=== PATIENT | male | born 1955 | race Caucasian/White ===

== ENCOUNTER 2016-07-20 12:33 | Observation (INO) | payer OTHER, MEDICARE ==
[~2016-07-20] VITALS: Ht 177.8 cm; Wt 124.8 kg
[~2016-07-20 12:33] MED LIST: ACETAMINOPHEN &1 TA1 PO; ASPIRIN 81MG TA81 MG PO; ATIVAN1 M1 PO; AUGMENTIN 500 M1 TAB PO; CILOSTAZOL100 MG PO; CYCLOBENZ5 MG PO; DULOXETINE 30MG30 MG PO; DULOXETINE60 MG PO; EFFIENT10 M2 PO; GABAPENTIN 600600 MG PO; GABAPENTIN TAB600 MG PO; HYDROCODONE BIT1 T39 PO; HYDROCODONE/ACE1 T11 PO; IBUPROFEN600 MG PO; LIPITOR40 MG PO; LISINOPRIL 5MG T5 MG PO; LORTAB 500 MG-11 TAB PO; NITROSTAT0.4 MG SL; OMEPRAZOLE40 MG PO; OXYCODONE AND A1 TA5 PO; PHENERGAN 25MG.25 M1 PO
[2016-07-20 12:34] VITALS: BP 153/106
[2016-07-20 12:52] LABS: HEMOGLOBIN 16.6 g/dL (14.1-18.0); LYMPH # 2.2 K/mm3 (0.7-4.5); LYMPH % 32.1 % (10-50)
--- NOTE | 2016-07-20 12:55 | Emergency Room Report ---
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 N Clinical Suspician of Infection? N Mental Status: 1 - Regular (Normal Baseline) Sepsis Risk:Possible Sepsis Risk Have you (or family members/close friends) recently traveled outside the [place]? N If Yes, where/when: Have you had exposure to infectious disease within the past month? TB? Other? Specify: Source patient, RN notes reviewed, family, RN/MD Exam Limitations no limitations Comment This is a 61-year-old gentleman presented to emergency room with chest pain, of sudden onset, around 10 AM, nonradiating, without any associated shows of breath, diaphoresis. Patient described his pain as pressure-like, 8/10, lasting 5-7 minutes. Patient underwent CABG in 1998, acquiring 2 more stents in [id number], and 3 more stents in January 2015 (Dr España). Patient advised that he has not been taking his medications in at least a year, as he has run out of them, nor did he follow up with cardiology or PCP in order to get refills. ALLERGIES Coded Allergies: enoxaparin (From LOVENOX) (Mild, FEVER 07/20/16) Home Medications Active Scripts OXYCODONE HCL/ACETAMINOPHEN (Oxycodone-Acetaminophen 10-325) 1 TAB PO QID PRN pain #56 TAB Prov: 02/28/16 Reported Medications Gabapentin (Gabapentin 600MG) 600 MG PO Q8 #90 TAB Omeprazole (Omeprazole 40MG) 40 MG PO DAILY #30 ASPIRIN (Aspirin) 81 MG PO DAILY Nitroglycerin (Nitrostat) 0.4 MG SL [id number] PRN CHEST PAIN History Medical History General CAD? Yes Angina: Yes [place]: Yes Hypertension? Yes Hyperlipidemia? Yes CHF? No DVT? No PE? No COPD? No Asthma? No Anemia? No GERD? Yes Gastric ulcers? No GI Bleed? No Hernia? Yes Thyroid Problems? No Hypothyroidism? No CVA? No Seizures? No Diabetes? No Renal Insuffiency? No End Stage Renal Disease? No UTI? No Stones? No BPH? No GB Disease: No Nephritic Syndrome? No Asplenia? No Hepatitis? No Sickle Cell Disease? No Arthritis? Yes Migraines? No Cataracts? No Glaucoma? No MRSA? No HIV? No TB? No Anxiety? No Depression? No Cancer? No More? Yes Additional hx: IRREGULAR HEART BEAT Immunization Hx Ped.Immunizations UTD Yes DT/Tetanus UNKNOWN Flu REFUSES Pneumonia REFUSES Surgical Hx Previous Surgery?Y 5-V CABG 2-HERNIA REPAIRS CYST REMOVED TAILBONE BILATERAL HIP REPLACEMENT STENT Family History Family Hx Diabetes No CAD Yes Hypertension Yes Hyperlipidemia Yes Cancer Yes TB No Social History Smoking Hx Smoker: Never Smoker Tobacco: No Type N/A Packs/day N/A Are you/the child exposed to second-hand smoke: No Alcohol Alcohol: No Review of Systems All Other Systems Reviewed and Negative Cardiovascular chest pain Physical Exam Vital Signs Vital Signs Date Time Temp Pulse Resp B/P Pulse O2 O2 Flow FiO2 Ox Delivery Rate 07/20 1642 98.0 81 20 133/76 95 ROOM AIR 07/20 1522 85 18 133/85 98 07/20 1349 80 12 159/81 99 07/20 1250 90 22 156/103 95 07/20 1234 98.1 91 22 153/106 96 General Appearance normal appearance, WD/WN, moderate distress Neck normal inspection, non-tender, supple, full range of motion Respiratory Status Yes: trachea midline, chest symmetrical, non tender chest. No: respiratory distress. Lung Sounds bilateral: normal breath sounds, lungs clear. 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 No Comment 12:45pm-case d/w Cuate Choi c/o Dr España 13:15pm-case discussed with Dr Calhoun Results/Orders Laboratory Tests 07/20/16 1500: Creatine Kinase 123, CK-MB (CK-2) Rel Index 1.1, CK and CKMB Interp 1.4, Troponin I < 0.02 07/20/16 1230: B-Natriuretic Peptide 17, D-Dimer 2700 *H 07/20/16 1230: Sodium 137, Potassium 3.9, Chloride 102, Carbon Dioxide 28, BUN 7, Creatinine 0.8, Estimated Creat Clear 163, Estimated GFR (MDRD) 98, Glucose 100, Calcium 8.9, Total Bilirubin 0.5, AST 28, ALT 48, Alkaline Phosphatase 96, Creatine Kinase 136, CK-MB (CK-2) Rel Index 1.3, CK and CKMB Interp 1.7, Troponin I < 0.02, Total Protein 8.2, Albumin 4.0, Globulin 4.2 H, Albumin/Globulin Ratio 1.0 L, PT 10.5, INR 0.98, APTT 27.3, WBC 7.0, RBC 5.39, Hgb 16.6, Hct 47.7, MCV 88.5, RDW 13.5, Plt Count 281, Gran % 62.4, Gran # 4.4, Lymphocytes % 32.1, Monocytes % 5.5, Lymphocytes # 2.2, Monocytes # 0.4, PUBS MCHC 34.8, MCH 30.8 Current Medication Orders Sig/Eddy Start time Last Medication Dose Route Stop Time Status Admin Fentanyl Citrate 25 MCG PRN PRN 07/21 1530 AC IV 07/21 2300 Fentanyl Citrate 50 MCG PRN PRN 07/21 1530 AC IV 07/21 2300 Flumazenil 0.2 MG PRN PRN 07/21 1530 AC IV 07/21 2300 Heparin Sodium (Beef 5,000 UNITS PRN PRN 07/21 1530 AC Lung) IV 07/22 1530 Heparin Sodium/ 3,000 UNITS PRN PRN 07/21 1530 AC Sodium Chloride IV 07/22 1530 Midazolam HCl 1 MG PRN PRN 07/21 1530 AC IV 07/21 2300 Midazolam HCl 1 MG PRN PRN 07/21 1530 AC IV 07/21 2300 Naloxone HCl 0.4 MG [id number] PRN 07/21 1530 AC IV 07/21 2300 Nitroglycerin 800 MCG PRN PRN 07/21 1530 AC IV 07/22 1530 Verapamil HCl 5 MG PRN PRN 07/21 1530 AC IV 07/22 1530 Aspirin 81 MG DAILY 07/21 0900 AC PO Prasugrel 10 MG DAILY 07/21 0900 AC PO Lidocaine HCl 20 ML ONCE ONE 07/21 0800 AC IJ 07/21 0801 Atorvastatin Calcium 40 MG QHS 07/20 2100 AC PO Cilostazol 100 MG BID 07/20 2100 AC PO Gabapentin 600 MG TID 07/20 2100 AC PO Lisinopril 10 MG BID 07/20 2100 AC PO Metoprolol Tartrate 25 MG BID 07/20 2100 AC PO Iopamidol 60 ML ONCE ONE 07/20 1430 DC 07/20 IV 07/20 1431 1426 Sodium Chloride 20 ML ONCE ONE 07/20 1430 DC 07/20 IV 07/20 1431 1426 Sodium Chloride 20 ML ONCE ONE 07/20 1430 DC 07/20 IV 07/20 1431 1426 Sodium Chloride 10 ML PRN PRN 07/20 1430 DC 07/20 IV 07/20 1554 1426 Heparin Sodium/ 500 ML .[id number] 07/20 1400 AC 07/20 Dextrose IV 1432 Heparin Sodium 5,000 UNITS ONCE ONE 07/20 1345 DC 07/20 (Porcine) IV 07/20 1346 1432 Miscellaneous 1 EACH CONSULT PHARMACY 07/20 1345 DC Information * 07/21 0137 Nitroglycerin 0.4 MG [id number] PRN 07/20 1345 AC SL Prasugrel 10 MG DAILY 07/20 1340 DC PO Enoxaparin Sodium 100 MG ONCE ONE 07/20 1330 DCr SC 07/20 1331 Prasugrel 60 MG ONCE ONE 07/20 1330 DC PO 07/20 1331 Enoxaparin Sodium 0 .STK-MED ONE 07/20 1326 DCr SC Sodium Chloride 1,000 ML .STK-MED ONE 07/20 1249 DC IV Aspirin 325 MG ONCE ONE 07/20 1245 DC 07/20 PO 07/20 1246 1248 Nitroglycerin 1 IN ONCE ONE 07/20 1245 DC 07/20 TP 07/20 1246 1248 Sodium Chloride 10 ML PRN PRN 07/20 1245 AC IV 07/21 1241 Sodium Chloride 1,000 ML .Q1H1M 07/20 1245 DC 07/20 IV 07/20 1345 1247 Sodium Chloride 10 ML PRN PRN 07/20 1245 AC IV 07/21 1242 Nitroglycerin 0 .STK-MED ONE 07/20 1244 DC .ROUTE Aspirin 0 .STK-MED ONE 07/20 1243 DC .ROUTE Orders Procedure Date/time Status DIET-NOTHING BY MOUTH 07/21 B Active PARTIAL THROMBOPLASTIN TIME 07/21 0400 Active Schedule Procedure 07/21 UNK Active PREPARE CONSENT 07/21 UNK Active [id number] FAT/LO CHO/FIDENCIO 07/20 D Complete PARTIAL THROMBOPLASTIN TIME 07/20 2100 Active CARDIAC ENZYMES 07/20 2100 Active ADMITTED PT IS ACTUALLY IN BED 07/20 1645 Active CARDIAC ENZYMES 07/20 1500 Complete PHARMACIST CONSULT 07/20 1337 Active BRAIN NATRIURETIC PEPTIDE 07/20 1334 Complete PARTIAL THROMBOPLASTIN TIME 07/20 1333 Complete PROTHROMBIN TIME 07/20 1333 Complete Decision to admit 07/20 1304 Active D-DIMER 07/20 1250 Complete ELECTROCARDIOGRAM REQUEST 07/20 1241 Active IV SALINE LOCK 07/20 1241 Active CBC WITH AUTO DIFF 07/20 1241 Complete CARDIAC ENZYMES 07/20 1241 Complete CHEM 12 PROFILE 07/20 1241 Complete 12 LEAD EKG-GABINO (INITIAL) 07/20 1240 Active ADMIT PATIENT 07/20 UNK Active PULSE OXIMETRY REQUEST 07/20 UNK Active OXYGEN REQUEST 07/[address] CHEST W/PE PROTOCOL REQ 07/20 UNK Complete VITAL SIGNS 07/20 UNK Active WILLOW MACHINE TENDER 07/20 UNK Active POM NURSE DENI HOSE ORDER 07/20 UNK Active CODE STATUS 07/20 UNK Active PATIENT ACTIVITY ORDER 07/20 UNK Active SPECIALTY CLINIC PHYS CONSULT 07/20 UNK Active CM/EKG CM/lock setter Rhythm Normal Sinus Rhythm Rate 85 Ectopy No Comments No acute ischemic changes EKG rate, NSR, rhythm, no evid. of ischemic chgs, no ectopy, normal QRS, normal MI, no EKG for comparison, non-spec. ST/Twave chgs, ST elevation, ST depression, LBBB, RBBB, ectopy, abnormal Q waves XRAY/CT/US XRAY/CT/US XRAY chest XR interpretation by reviewed by me, discussed w/radiologist Xray Results no infiltrates, normal heart size, normal lung inflation belinda CT chest CT interpretation by discussed w/radiologist (PE protocol) CT Results no infiltrates, normal heart size, normal lung inflation belinda Departure Departure Time of Disposition 1318 Disposition Still a Patient Clinical Impression Primary Impression: Chest pain Qualifiers: Chest pain type: unspecified Qualified Code: R07.9 - Chest pain, unspecified Condition STABLE Referrals Marlene GEORGE,Carlos Manuel (Family) ED Critical Care Critical Care No at 1747
--- NOTE | 2016-07-20 12:55 | Emergency Room Report ---
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 N Clinical Suspician of Infection? N Mental Status: 1 - Regular (Normal Baseline) Sepsis Risk:Possible Sepsis Risk Have you (or family members/close friends) recently traveled outside the [place]? N If Yes, where/when: Have you had exposure to infectious disease within the past month? TB? Other? Specify: Source patient, RN notes reviewed, family, RN/MD Exam Limitations no limitations Comment This is a 61-year-old gentleman presented to emergency room with chest pain, of sudden onset, around 10 AM, nonradiating, without any associated shows of breath, diaphoresis. Patient described his pain as pressure-like, 8/10, lasting 5-7 minutes. Patient underwent CABG in 1998, acquiring 2 more stents in [id number], and 3 more stents in January 2015 (Dr España). Patient advised that he has not been taking his medications in at least a year, as he has run out of them, nor did he follow up with cardiology or PCP in order to get refills. ALLERGIES Coded Allergies: enoxaparin (From LOVENOX) (Mild, FEVER 07/20/16) Home Medications Active Scripts OXYCODONE HCL/ACETAMINOPHEN (Oxycodone-Acetaminophen 10-325) 1 TAB PO QID PRN pain #56 TAB Prov: 02/28/16 Reported Medications Gabapentin (Gabapentin 600MG) 600 MG PO Q8 #90 TAB Omeprazole (Omeprazole 40MG) 40 MG PO DAILY #30 ASPIRIN (Aspirin) 81 MG PO DAILY Nitroglycerin (Nitrostat) 0.4 MG SL [id number] PRN CHEST PAIN History Medical History General CAD? Yes Angina: Yes [place]: Yes Hypertension? Yes Hyperlipidemia? Yes CHF? No DVT? No PE? No COPD? No Asthma? No Anemia? No GERD? Yes Gastric ulcers? No GI Bleed? No Hernia? Yes Thyroid Problems? No Hypothyroidism? No CVA? No Seizures? No Diabetes? No Renal Insuffiency? No End Stage Renal Disease? No UTI? No Stones? No BPH? No GB Disease: No Nephritic Syndrome? No Asplenia? No Hepatitis? No Sickle Cell Disease? No Arthritis? Yes Migraines? No Cataracts? No Glaucoma? No MRSA? No HIV? No TB? No Anxiety? No Depression? No Cancer? No More? Yes Additional hx: IRREGULAR HEART BEAT Immunization Hx Ped.Immunizations UTD Yes DT/Tetanus UNKNOWN Flu REFUSES Pneumonia REFUSES Surgical Hx Previous Surgery?Y 5-V CABG 2-HERNIA REPAIRS CYST REMOVED TAILBONE BILATERAL HIP REPLACEMENT STENT Family History Family Hx Diabetes No CAD Yes Hypertension Yes Hyperlipidemia Yes Cancer Yes TB No Social History Smoking Hx Smoker: Never Smoker Tobacco: No Type N/A Packs/day N/A Are you/the child exposed to second-hand smoke: No Alcohol Alcohol: No Review of Systems All Other Systems Reviewed and Negative Cardiovascular chest pain Physical Exam Vital Signs Vital Signs Date Time Temp Pulse Resp B/P Pulse O2 O2 Flow FiO2 Ox Delivery Rate 07/20 1642 98.0 81 20 133/76 95 ROOM AIR 07/20 1522 85 18 133/85 98 07/20 1349 80 12 159/81 99 07/20 1250 90 22 156/103 95 07/20 1234 98.1 91 22 153/106 96 General Appearance normal appearance, WD/WN, moderate distress Neck normal inspection, non-tender, supple, full range of motion Respiratory Status Yes: trachea midline, chest symmetrical, non tender chest. No: respiratory distress. Lung Sounds bilateral: normal breath sounds, lungs clear. 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 No Comment 12:45pm-case d/w Cuate Choi c/o Dr España 13:15pm-case discussed with Dr Calhoun Results/Orders Laboratory Tests 07/20/16 1500: Creatine Kinase 123, CK-MB (CK-2) Rel Index 1.1, CK and CKMB Interp 1.4, Troponin I < 0.02 07/20/16 1230: B-Natriuretic Peptide 17, D-Dimer 2700 *H 07/20/16 1230: Sodium 137, Potassium 3.9, Chloride 102, Carbon Dioxide 28, BUN 7, Creatinine 0.8, Estimated Creat Clear 163, Estimated GFR (MDRD) 98, Glucose 100, Calcium 8.9, Total Bilirubin 0.5, AST 28, ALT 48, Alkaline Phosphatase 96, Creatine Kinase 136, CK-MB (CK-2) Rel Index 1.3, CK and CKMB Interp 1.7, Troponin I < 0.02, Total Protein 8.2, Albumin 4.0, Globulin 4.2 H, Albumin/Globulin Ratio 1.0 L, PT 10.5, INR 0.98, APTT 27.3, WBC 7.0, RBC 5.39, Hgb 16.6, Hct 47.7, MCV 88.5, RDW 13.5, Plt Count 281, Gran % 62.4, Gran # 4.4, Lymphocytes % 32.1, Monocytes % 5.5, Lymphocytes # 2.2, Monocytes # 0.4, PUBS MCHC 34.8, MCH 30.8 Current Medication Orders Sig/Eddy Start time Last Medication Dose Route Stop Time Status Admin Fentanyl Citrate 25 MCG PRN PRN 07/21 1530 AC IV 07/21 2300 Fentanyl Citrate 50 MCG PRN PRN 07/21 1530 AC IV 07/21 2300 Flumazenil 0.2 MG PRN PRN 07/21 1530 AC IV 07/21 2300 Heparin Sodium (Beef 5,000 UNITS PRN PRN 07/21 1530 AC Lung) IV 07/22 1530 Heparin Sodium/ 3,000 UNITS PRN PRN 07/21 1530 AC Sodium Chloride IV 07/22 1530 Midazolam HCl 1 MG PRN PRN 07/21 1530 AC IV 07/21 2300 Midazolam HCl 1 MG PRN PRN 07/21 1530 AC IV 07/21 2300 Naloxone HCl 0.4 MG [id number] PRN 07/21 1530 AC IV 07/21 2300 Nitroglycerin 800 MCG PRN PRN 07/21 1530 AC IV 07/22 1530 Verapamil HCl 5 MG PRN PRN 07/21 1530 AC IV 07/22 1530 Aspirin 81 MG DAILY 07/21 0900 AC PO Prasugrel 10 MG DAILY 07/21 0900 AC PO Lidocaine HCl 20 ML ONCE ONE 07/21 0800 AC IJ 07/21 0801 Atorvastatin Calcium 40 MG QHS 07/20 2100 AC PO Cilostazol 100 MG BID 07/20 2100 AC PO Gabapentin 600 MG TID 07/20 2100 AC PO Lisinopril 10 MG BID 07/20 2100 AC PO Metoprolol Tartrate 25 MG BID 07/20 2100 AC PO Iopamidol 60 ML ONCE ONE 07/20 1430 DC 07/20 IV 07/20 1431 1426 Sodium Chloride 20 ML ONCE ONE 07/20 1430 DC 07/20 IV 07/20 1431 1426 Sodium Chloride 20 ML ONCE ONE 07/20 1430 DC 07/20 IV 07/20 1431 1426 Sodium Chloride 10 ML PRN PRN 07/20 1430 DC 07/20 IV 07/20 1554 1426 Heparin Sodium/ 500 ML .[id number] 07/20 1400 AC 07/20 Dextrose IV 1432 Heparin Sodium 5,000 UNITS ONCE ONE 07/20 1345 DC 07/20 (Porcine) IV 07/20 1346 1432 Miscellaneous 1 EACH CONSULT PHARMACY 07/20 1345 DC Information * 07/21 0137 Nitroglycerin 0.4 MG [id number] PRN 07/20 1345 AC SL Prasugrel 10 MG DAILY 07/20 1340 DC PO Enoxaparin Sodium 100 MG ONCE ONE 07/20 1330 DCr SC 07/20 1331 Prasugrel 60 MG ONCE ONE 07/20 1330 DC PO 07/20 1331 Enoxaparin Sodium 0 .STK-MED ONE 07/20 1326 DCr SC Sodium Chloride 1,000 ML .STK-MED ONE 07/20 1249 DC IV Aspirin 325 MG ONCE ONE 07/20 1245 DC 07/20 PO 07/20 1246 1248 Nitroglycerin 1 IN ONCE ONE 07/20 1245 DC 07/20 TP 07/20 1246 1248 Sodium Chloride 10 ML PRN PRN 07/20 1245 AC IV 07/21 1241 Sodium Chloride 1,000 ML .Q1H1M 07/20 1245 DC 07/20 IV 07/20 1345 1247 Sodium Chloride 10 ML PRN PRN 07/20 1245 AC IV 07/21 1242 Nitroglycerin 0 .STK-MED ONE 07/20 1244 DC .ROUTE Aspirin 0 .STK-MED ONE 07/20 1243 DC .ROUTE Orders Procedure Date/time Status DIET-NOTHING BY MOUTH 07/21 B Active PARTIAL THROMBOPLASTIN TIME 07/21 0400 Active Schedule Procedure 07/21 UNK Active PREPARE CONSENT 07/21 UNK Active [id number] FAT/LO CHO/FIDENCIO 07/20 D Complete PARTIAL THROMBOPLASTIN TIME 07/20 2100 Active CARDIAC ENZYMES 07/20 2100 Active ADMITTED PT IS ACTUALLY IN BED 07/20 1645 Active CARDIAC ENZYMES 07/20 1500 Complete PHARMACIST CONSULT 07/20 1337 Active BRAIN NATRIURETIC PEPTIDE 07/20 1334 Complete PARTIAL THROMBOPLASTIN TIME 07/20 1333 Complete PROTHROMBIN TIME 07/20 1333 Complete Decision to admit 07/20 1304 Active D-DIMER 07/20 1250 Complete ELECTROCARDIOGRAM REQUEST 07/20 1241 Active IV SALINE LOCK 07/20 1241 Active CBC WITH AUTO DIFF 07/20 1241 Complete CARDIAC ENZYMES 07/20 1241 Complete CHEM 12 PROFILE 07/20 1241 Complete 12 LEAD EKG-GABINO (INITIAL) 07/20 1240 Active ADMIT PATIENT 07/20 UNK Active PULSE OXIMETRY REQUEST 07/20 UNK Active OXYGEN REQUEST 07/[address] CHEST W/PE PROTOCOL REQ 07/20 UNK Complete VITAL SIGNS 07/20 UNK Active BULK PIGMENT REDUCER 07/20 UNK Active POM NURSE DENI HOSE ORDER 07/20 UNK Active CODE STATUS 07/20 UNK Active PATIENT ACTIVITY ORDER 07/20 UNK Active SPECIALTY CLINIC PHYS CONSULT 07/20 UNK Active CM/EKG CM/science editor Rhythm Normal Sinus Rhythm Rate 85 Ectopy No Comments No acute ischemic changes EKG rate, NSR, rhythm, no evid. of ischemic chgs, no ectopy, normal QRS, normal IA, no EKG for comparison, non-spec. ST/Twave chgs, ST elevation, ST depression, LBBB, RBBB, ectopy, abnormal Q waves XRAY/CT/US XRAY/CT/US XRAY chest XR interpretation by reviewed by me, discussed w/radiologist Xray Results no infiltrates, normal heart size, normal lung inflation belinda CT chest CT interpretation by discussed w/radiologist (PE protocol) CT Results no infiltrates, normal heart size, normal lung inflation belinda Departure Departure Time of Disposition 1318 Disposition Still a Patient Clinical Impression Primary Impression: Chest pain Qualifiers: Chest pain type: unspecified Qualified Code: R07.9 - Chest pain, unspecified Condition STABLE Referrals Marlene GEORGE,Carlos Manuel (Family) ED Critical Care Critical Care No at 1744
[2016-07-20 13:10] LABS: BUN 7 mg/dL (7-18)
[2016-07-20 13:11] LABS: GFR (ESTIMATED) 98 ML/MIN (>60)
--- OUTSIDE RECORDS SUMMARY | 2016-07-20 13:14 | External Medical Summary Rpt ---
Author Author , Organization [employer] Address Unknown Phone Unavailable Purpose Continuity of Care Document - through 2016
--- OUTSIDE RECORDS SUMMARY | 2016-07-20 13:14 | External Medical Summary Rpt ---
Author Author [employer] Organization [employer] Address Unknown Phone Unavailable Purpose Continuity of Care Document - through 2016
--- OUTSIDE RECORDS SUMMARY | 2016-07-20 13:15 | External Medical Summary Rpt ---
Author Author [facility], [employer] Organization [employer] Address Unknown Phone Unavailable
--- OUTSIDE RECORDS SUMMARY | 2016-07-20 13:15 | External Medical Summary Rpt ---
Demographics Preferred Language Sudanese Marital Status Unknown Zoroastrianism Affiliation Unknown Race Unknown Ethnic Group Unknown Author Author , Organization [employer] Address Unknown Phone Unavailable Purpose Continuity of Care Document - through 2016 Immunization No patient found.
--- OUTSIDE RECORDS SUMMARY | 2016-07-20 13:15 | External Medical Summary Rpt ---
Demographics Preferred Language Greek Marital Status Unknown Sabianism Affiliation Unknown Race Unknown Ethnic Group Unknown Author Author , Organization [employer] Address Unknown Phone Unavailable Purpose Continuity of Care Document - through 2016 Immunization No patient found.
--- NOTE | 2016-07-20 13:42 | CONSULT NOTE ---
Standard Demographics Patient Demo Date of Consultation: 07/20/16 Referring Provider: Carlos Manuel Rosario MD Reason for Consultation: unstable angina, CAD PRIMARY DIAGNOSIS: chest pain Problem list Problem list: 1. Coronary artery disease A. S/P five-vessel coronary artery bypass grafting, 15 years ago B. History of coronary stenting approximate 5 years ago C. [facility], 02/2015, ABRIL to SVG/Cx and SVG/RCA. 2. Remote tobacco use discontinued approximately 20 years ago. He smoked approximately one pack per day for about 20 years. 3. Obesity 4. Status post bilateral hip replacement 5. PAD A. LE angiogram, 06/2015, severe PAD not amenable to intervention or surgery. Recommendation for medical therapy and exercise. 6. HTN 7. Hyperlipidemia History of present illness: History of present illness: 61-year-old white male with known coronary artery disease as described above presented with onset of chest pain 2 hours prior to ER visit. Symptoms described as left-sided discomfort without radiation but with shortness of breath and diaphoresis. Patient's symptoms do occur with activity and resolve with rest. Symptoms today onset at rest and resolved after nitroglycerin paste placed in the emergency department. He does relate taking nitroglycerin recently with resolution of symptoms also. Patient relates a two-week history of similar symptoms but not as severe. He relates noncompliance with medication over the last 3 months. He has known previous bypass and coronary artery disease that has been stented as recently as February 2015. Cardiology consulted for evaluation and recommendations. Electrocardiogram shows sinus rhythm with first-degree AV block and no acute change. Initial troponin pending at this time. Past Medical History: General: Hypertension Yes CVA No Seizures No TB No COPD No Asthma No Diabetes No Angina Yes HI Yes Hyperlipidemia Yes Urinary No Cancer No Rheumatic H.D. No Ulcers Yes MRSA No GB Disease No Other CAD Additional hx IRREGULAR HEART BEAT Past Surgical HX: Previous Surgery?Y 5-V CABG 2-HERNIA REPAIRS CYST REMOVED TAILBONE BILATERAL HIP REPLACEMENT STENT Allergies Coded Allergies: enoxaparin (From LOVENOX) (Mild, FEVER 07/20/16) Home medications: Active Scripts OXYCODONE HCL/ACETAMINOPHEN (Oxycodone-Acetaminophen 10-325) 1 TAB PO QID PRN pain #56 TAB Prov: 02/28/16 Reported Medications Gabapentin (Gabapentin 600MG) 600 MG PO Q8 #90 TAB Omeprazole (Omeprazole 40MG) 40 MG PO DAILY #30 ASPIRIN (Aspirin) 81 MG PO DAILY Prasugrel HCl (Effient) 10 MG PO DAILY CILOSTAZOL (Cilostazol) 100 MG PO UNKNOWN Nitroglycerin (Nitrostat) 0.4 MG SL [id number] PRN CHEST PAIN Current Medications: Current Medications Atorvastatin Calcium 40 MG QHS PO (UNV) Lisinopril 10 MG BID PO (UNV) Metoprolol Tartrate 25 MG BID PO (UNV) Enoxaparin Sodium 100 MG ONCE ONE SC (DCr) Prasugrel 60 MG ONCE ONE PO (UNV) Enoxaparin Sodium 0 .STK-MED ONE SC (DCr) Sodium Chloride 1,000 ML .STK-MED ONE IV (DC) Aspirin 325 MG ONCE ONE PO (DC) Nitroglycerin 1 IN ONCE ONE TP (DC) Sodium Chloride 10 ML PRN PRN IV Sodium Chloride 1,000 ML .Q1H1M IV Sodium Chloride 10 ML PRN PRN IV Nitroglycerin 0 .STK-MED ONE .ROUTE (DC) Aspirin 0 .STK-MED ONE .ROUTE (DC) Immunization HX Ped.Immunizations UTD Yes DT/Tetanus UNKNOWN Flu REFUSES Pneumonia REFUSES Family history Family HX Family Hx Insignificant No Diabetes No CAD Yes Hypertension Yes Hyperlipidemia Yes Cancer Yes TB No Social Hx: Smoking HX Tobacco No Type N/A Packs/day N/A Are you/the child exposed to second-hand smoke: No Alcohol Alcohol: No Hx of Drug Use Drug Use? No Review of systems: Constitutional see HPI, weakness. Respiratory SOB with excertion. Cardiovascular see HPI, chest pain Gastrointestinal/Abdominal No no symptoms reported Genitourinary No: no symptoms reported. Musculoskeletal back pain. Neurological No: no symptoms reported. Exam: Admission Vital Signs: 1ST Vital Signs Result Date Time Pulse Ox 96 07/20 1234 B/P 153/106 07/20 1234 Temp 98.1 07/20 1234 Pulse 91 07/20 1234 Resp 07/20 1234 Last Vital Signs: Vital Signs Result Date Time Pulse Ox 95 07/20 1250 B/P 156/103 07/20 1250 Pulse 90 07/20 1250 Resp 22 07/20 1250 Temp 98.1 07/20 1234 Exam General appearance: alert, awake, no acute distress Neck: no carotid bruit, no JVD Cardiovascular: normal sinus rhythm, regular rate & rhythm, soft systolic ejection murmur noted at the LEFT sternal border grade 2/6. Respiratory: clear to auscultation without rales or wheezing. Extremities: moves all, no peripheral edema Neuro: alert, intact, oriented Laboratory data: Laboratory Tests 07/20/16 1230: Sodium 137, Potassium 3.9, Chloride 102, Carbon Dioxide 28, BUN 7, Creatinine 0.8, Estimated Creat Clear 163, Estimated GFR (MDRD) 98, Glucose 100, Calcium 8.9, Total Bilirubin 0.5, AST 28, ALT 48, Alkaline Phosphatase 96, Creatine Kinase 136, CK-MB (CK-2) Rel Index 1.3, CK and CKMB Interp 1.7, Troponin I < 0.02, Total Protein 8.2, Albumin 4.0, Globulin 4.2 H, Albumin/Globulin Ratio 1.0 L, D-Dimer 2700 *H, WBC 7.0, RBC 5.39, Hgb 16.6, Hct 47.7, MCV 88.5, RDW 13.5, Plt Count 281, Gran % 62.4, Gran # 4.4, Lymphocytes % 32.1, Monocytes % 5.5, Lymphocytes # 2.2, Monocytes # 0.4, PUBS MCHC 34.8, MCH 30.8 Plan: Assessment: 1. Chest pain with concern for unstable angina pectoris in a patient with known coronary artery disease and recent medication noncompliance. Check serial cardiac enzymes, admit for observation with tentative plans for cardiac catheterization tomorrow. We'll load with Effient 60 mg and resume aspirin along with starting beta audra BART inhibitor and statin. Will order echo today to evaluate LV size, function and valve status. 2. Elevated d-dimer, plans to start heparin with order for CT of the chest to rule out PE protocol pending. 3. Hyperlipidemia 4. Hypertension Recommendations: Discussed with and seen with Dr. KURTZ. See above. at 1530
[2016-07-20] MEDS ORDERED: GABAPENTIN 600600 MG PO (13:46)
--- NOTE | 2016-07-20 14:53 | RADIOLOGY REPORT PS360 ---
CTA-CHEST HISTORY: Chest pain, elevated d-dimer CHEST PAIN, ELEVATED D-DIMER ORDERING PHYSICIAN: Carlos Manuel Rosario MD PATIENT AGE: 61 years TECHNIQUE: Helical acquisition obtained following the bolus administration of 60 mL of Isovue 370 followed by a saline bolus. Axial, sagittal, and coronal reformatted images are generated and reviewed. COMPARISON: 10/11/2011 FINDINGS: There is no evidence of pulmonary embolus. No aortic aneurysm or dissection apparent. There has been prior CABG. Normal heart size. No mediastinal or hilar adenopathy. There are minimal fibrotic changes in the left upper lobe. No suspicious pulmonary nodules, infiltrates, or effusions. Mild amount of gas is present within the esophagus and could be due to reflux. Upper abdominal images are unremarkable. Aortic stent graft is present incompletely imaged IMPRESSION: 1. No evidence of pulmonary embolus or aortic aneurysm. 2. Prior CABG. 3. Gas within the esophagus which may be seen with reflux
--- NOTE | 2016-07-20 14:55 | RADIOLOGY REPORT PS360 ---
CHEST-PORTABLE HISTORY: Shortness of air and chest pain SOA,CP ORDERING PHYSICIAN: Carlos Manuel Rosario MD PATIENT AGE: 61 years COMPARISON: 03/01/2015. FINDINGS: Mild cardiomegaly. Prior median sternotomy. No lobar consolidation or collapse. Lungs are clear. IMPRESSION: Prior median sternotomy. No change with no acute finding
--- NOTE | 2016-07-20 15:30 | RADIOLOGY REPORT PS360 ---
PROCEDURE: 2-D M-mode and color Doppler study INDICATIONS FOR THE TEST: Chest pain X COPD Heart Murmur Tobacco Smoking Palpitations Fatigue Syncope Edema HypertensionXDiabetes Mellitus Rheumatic Fever SOBXDOE Obesity HyperlipidemiaX Family History HD Additional History CAD CABG STENTS PAD PATIENT INFORMATION HEIGHT: 70 WEIGHT:265 GENDER: Male B/P:153/1.3 2-D/M-MODE INTERPRETATION: 2-D MEASUREMENTS OBSERVED VALUES IN CMS Right Ventricular Dimension (RVDd) 2.8 Interventricular Septum (Thickness)(IVsd) 1.4 Left Ventricular Internal Dimensions(LVIDd) 5.3 Left Ventricular Posterior Wall (Thickness)(LVPWd) 1.2 Aortic Root 3.4 Aortic Cusp Separation 2.0 Left Atrial Dimensions (LAD) 3.6 2D 1. Technically difficult study because of the patient's factor and poor acoustic Windows. 2. The left atrium is qualitatively mildly enlarged, left ventricle is normal size, there is mild concentric left ventricular hypertrophy, visually estimated ejection fraction 55% with no obvious regional wall motion abnormality, endocardial surface of poorly visualized. 3. The right atrium is normal size, right ventricle is mildly enlarged with normal contractility. 4. The aortic valve is thickened and calcified leaflet, display mobility. 5. The mitral valve has mitral calcification there is no mitral stenosis. 6. The tricuspid is structurally normal. 7. The pulmonic valve is not well visualized. 8. No significant pericardial effusion noted. DOPPLER INTERROGATION: Doppler interrogation of the aortic mitral and tricuspid valvular presence of mild mitral and tricuspid regurgitation, tricuspid regurgitant jet velocity insufficient for acquisition of the right ventricular systolic pressure, grade 1 diastolic dysfunction seen, tissue Doppler was not performed. CONCLUSION: 1. Technically difficult study because of the patient's factor and poor acoustic windows. 2. Mildly enlarged left atrium, normal left wrist size, mild concentric left ventricular hypertrophy, visually estimated ejection fraction 55% with no obvious regional wall motion abnormality, grade 1 diastolic dysfunction seen, there was no tissue Doppler performed. 3. Thickened and calcified aortic valve without aortic stenosis aortic insufficiency. 4. Mild mitral and tricuspid regurgitation. 5. No significant pericardial effusion noted.
--- NOTE | 2016-07-20 15:41 | PHARMACY CLINIC NOTE ---
Patient Demographics Patient Demographics Admission date: 07/20/16 Date: 07/20/16 Time: 1529 Allergies Coded Allergies: enoxaparin (From LOVENOX) (Mild, FEVER 07/20/16) HEIGHT- FT: 5 IN: 10.00 K.204 Medication Indication Medication therapy: Heparin Current indication for use: CHEST PAIN Problem List 1. Chest pain Acute CVA: No Pharmacy Heparin dosing labs Anticoag labs: Laboratory Tests 07/20 1230 Hematology Hgb (14.1 - 18.0 g/dL) 16.6 Hct (42.0 - 52.0 %) 47.7 Plt Count (142 - 424 K/mm3) 281 Pharmacist alert! If baseline PTT/INR not ordered, pharmacist must order! Order CBC w/auto diff weekly while on heparin! Obtain PTT with each rate change Q 6 hrs until 2 consecutive goal values then daily. Monitoring PHARMACY MONITORING 1 Date: 07/20/16 Time: 1530 PTT: 27.3 Infusion rate: 29 ML/HR (1450 UNITS/HR) Notes: 5000 UNIT BOLUS PHARMACY MONITORING 2 Date: 07/20/16 Time: 2100 PTT: 25.9 Infusion rate: 29 ML/HR Notes: HEPARIN STOPPED Core Measures Core Measures Is INR > or = to 2.0 at d/c? No Most recent lab results: Laboratory Tests 07/20 1230 Hematology Hgb (14.1 - 18.0 g/dL) 16.6 Hct (42.0 - 52.0 %) 47.7 Plt Count (142 - 424 K/mm3) 281 If INR was < than 2.0 why was therapy stopped? NO VTE Were warfarin and heparin started the same day? No If not, why? NO VTE at 0942
--- NOTE | 2016-07-20 15:48 | HISTORY AND PHYSICAL REPORT ---
History and Physical ([facility]) Date of admission: 07/20/16 Chief complaint: CP, SOA, fatigue History: History of Present Illness: Mr. Rivera is a 61-year-old white male with known coronary artery disease who presented with chest pain that began 2 hours prior to ER visit. Symptoms today were left-sided discomfort without radiation but with shortness of breath and diaphoresis. Patient's symptoms do occur with activity and resolve with rest. Symptoms today began at rest and resolved after nitroglycerin paste was placed in the emergency department. He states about 2 weeks ago he had midsternal CP and he took some old nitroglycerin with resolution of symptoms at that time as well. He relates noncompliance with medication over the last 3 months. He has known previous bypass and coronary artery disease that has been stented as recently as February 2015. Cardiology was consulted for evaluation and recommendations. His electrocardiogram showed sinus rhythm with a first-degree AV block and no acute change. His initial troponin was normal. He will be admitted for observation. Past Medical History: Medical History: CAD? Yes Angina: Yes CT: Yes Hypertension? Yes Hyperlipidemia? Yes CHF? No DVT? No PE? No COPD? No Asthma? No Anemia? No GERD? Yes Gastric ulcers? No GI Bleed? No Hernia? Yes Thyroid Problems? No Hypothyroidism? No CVA? No Seizures? No Diabetes? No Renal Insuffiency? No UTI? No Stones? No BPH? No GB Disease: No Nephritic Syndrome? No Asplenia? No Hepatitis? No Sickle Cell Disease? No Arthritis? Yes Migraines? No Cataracts? No Glaucoma? No MRSA? No HIV? No TB? No Anxiety? No Depression? No Cancer? No More? Yes Additional hx: 1. IRREGULAR HEART BEAT Surgical history: Previous Surgery?Y 1. CABG 2. 2-HERNIA REPAIRS 3. CYST REMOVED TAILBONE 4. BILATERAL HIP REPLACEMENT 5. STENT Allergies: Coded Allergies: enoxaparin (From LOVENOX) (Mild, FEVER 07/20/16) Family History: Family history: Postive for: CAD, HTN. Negative for: cancer, hyperlipidemia, stroke. Social History: Smoking Hx Tobacco: No Smoker: Former Smoker Type: N/A Packs/day: N/A Are you exposed to second hand No Alcohol: Alcohol: No Hx of Drug Use: Drug Use? No Review of Systems: Constitutional Positive for: fatigue. No: lethargy, malaise, weak. ENT Positive for: nasal congestion. No: sore throat. Cardiovascular Positive for: chest pain. No: edema, palpitations. Respiratory Positive for: shortness of air, productive cough (sputum). No: wheezing. GI No: abdominal pain, diarrhea, nausea, vomitting. (male) No: frequency, hematuria. Neurological Positive for: weakness. No: dizziness, headache, syncope. Musculoskeletal Positive for: joint pain (chronic hip pain). No: extremity pain, myalgias. Physical Exam: Vital signs: 1ST Vital Signs Result Date Time Pulse Ox 96 07/20 123 B/P 153/106 07/20 1233 Temp 98.1 07/20 1233 Pulse 91 07/20 1234 Resp 22 07/20 123 Exam: General appearance: alert, awake, no acute distress Eyes: EOM's w/normal ROM, PERRLA ENT: mucous membranes moist, nose normal, pharynx normal, tympanic membranes normal Neck: non-tender, no carotid bruit, full range of motion, supple Cardiovascular: regular rate & rhythm Respiratory: clear to auscultation ABD: non-distended, normal bowel sounds, no rebound, soft, no tenderness, no guarding Extremities: no peripheral edema Musculoskeletal: equal muscle strength, motor intact, sensation intact Skin: normal color Neuro: normal mood/affect, oriented, speech clear Lab data: Labs: Laboratory Tests 07/20/16 1230: B-Natriuretic Peptide 17 07/20/16 1230: Sodium 137, Potassium 3.9, Chloride 102, Carbon Dioxide 28, BUN 7, Creatinine 0.8, Estimated Creat Clear 163, Estimated GFR (MDRD) 98, Glucose 100, Calcium 8.9, Total Bilirubin 0.5, AST 28, ALT 48, Alkaline Phosphatase 96, Creatine Kinase 136, CK-MB (CK-2) Rel Index 1.3, CK and CKMB Interp 1.7, Troponin I < 0.02, Total Protein 8.2, Albumin 4.0, Globulin 4.2 H, Albumin/Globulin Ratio 1.0 L, D-Dimer 2700 *H, WBC 7.0, RBC 5.39, Hgb 16.6, Hct 47.7, MCV 88.5, RDW 13.5, Plt Count 281, Gran % 62.4, Gran # 4.4, Lymphocytes % 32.1, Monocytes % 5.5, Lymphocytes # 2.2, Monocytes # 0.4, PUBS MCHC 34.8, MCH 30.8 Radiology results: Results: Echo - 1. Technically difficult study because of the patient's factor and poor acoustic windows. 2. Mildly enlarged left atrium, normal left wrist size, mild concentric left ventricular hypertrophy, visually estimated ejection fraction 55% with no obvious regional wall motion abnormality, grade 1 diastolic dysfunction seen, there was no tissue Doppler performed. 3. Thickened and calcified aortic valve without aortic stenosis aortic insufficiency. 4. Mild mitral and tricuspid regurgitation. 5. No significant pericardial effusion noted. CXR Prior median sternotomy. No change with no acute finding Chest CT 1. No evidence of pulmonary embolus or aortic aneurysm. 2. Prior CABG. 3. Gas within the esophagus which may be seen with reflux Diagnosis(es): 1. Chest pain Status: Acute 2. Elevated d-dimer Status: Acute 3. CAD (coronary artery disease) Status: Chronic 4. Hypertension Status: Chronic 5. Medical non-compliance Status: Chronic 6. History of CT (myocardial infarction) Status: Chronic 7. Chronic right hip pain Status: Chronic Plan: Patient has been seen by cardiology. He will be admitted overnight for observation and have a heart cath tomorrow. (Kalyani Ayala) Past Medical History: Medications: Reported Medications Gabapentin (Gabapentin 600MG) 600 MG PO Q8 #90 TAB OXYCODONE HCL (Oxycodone Hcl) 15 MG PO TID #90 Omeprazole (Omeprazole 40MG) 40 MG PO DAILY #30 ASPIRIN (Aspirin) 81 MG PO DAILY Nitroglycerin (Nitrostat) 0.4 MG SL [id number] PRN CHEST PAIN Diagnosis(es): 1. Chest pain Status: Acute 2. Elevated d-dimer Status: Acute 3. CAD (coronary artery disease) Status: Chronic 4. Hypertension Status: Chronic 5. Medical non-compliance Status: Chronic 6. History of CT (myocardial infarction) Status: Chronic 7. Chronic right hip pain Status: Chronic Plan: Patient seen and agree with above note. (Carlos Manuel Rosario MD) at 1547 at 1802
[2016-07-20 16:42] VITALS: BP 133/76
[2016-07-20] MEDS ORDERED: OXYCODONE HCL15 MG PO (17:43)
[2016-07-20 19:02] VITALS: BP 133/76
[2016-07-20 20:15] VITALS: BP 127/62
[2016-07-20 21:30] VITALS: BP 127/62
[2016-07-21] VITALS (12 sets, daily range): BP systolic 90–122; BP diastolic 42–90
--- NOTE | 2016-07-21 07:14 | PHARMACY CLINIC NOTE ---
Patient Demographics Patient Demographics Admission date: 07/20/16 Date: 07/21/16 Time: 0713 Allergies Coded Allergies: enoxaparin (From LOVENOX) (Mild, FEVER 07/20/16) HEIGHT- FT: 5 IN: 10.00 K.768 VTE General Information Labs: Laboratory Tests 07/20 1230 Coagulation PT (9.4 - 11.8 SECONDS) 10.5 INR (0.9 - 1.1) 0.98 APTT (23.6 - 34.0 SECONDS) 25.9 27.3 Hematology Hgb (14.1 - 18.0 g/dL) 16.6 Hct (42.0 - 52.0 %) 47.7 Plt Count (142 - 424 K/mm3) 281 Disclaimer The following section includes nursing documentation that has been pulled in for pharmacy review. Patient's VTE score: 1 Patient's VTE Risk: VERY LOW RISK Clinical trial participant? No VTE prophylaxis [id number] VTE prophylaxis ordered? Yes Type of prophylaxis/treatment: DENI Tesfaye at 0713
--- NOTE | 2016-07-21 07:48 | ACUTE CARE PROGRESS NOTE (QUA) ---
Progress Notes Subjective Date 07/21/16 Time 0743 Note 61 yo WM in NAD. No chest pain overnight. Ready for cath today. Objective Findings Last VS-Temp:98.7 B/P:90/42 Pulse:68 Resp:16 SaO2:95 ROOM AIR Last weight lbs:275 oz:1 K.768 Method:Bed Scales Exam General appearance: alert, awake, no acute distress Cardiovascular: regular rate & rhythm Respiratory: clear to auscultation Reviewed: medications, vital signs, lab results Assessment/Plan Problem List 1. Chest pain Status: Acute 2. Elevated d-dimer Status: Acute Assessment/Plan: CT of chest showed no evidence of PE. 3. CAD (coronary artery disease) Status: Chronic Assessment/Plan: [facility] today. Qualifiers: Coronary Disease-Associated Artery/Lesion type: unspecified vessel or lesion type [place] vs. transplanted heart: [place] heart Associated angina: with unstable angina Qualified Code: I25.110 - Atherosclerotic heart disease of [place] coronary artery with unstable angina pectoris 4. Hypertension Status: Chronic Assessment/Plan: Controlled on restarting of meds. Qualifiers: Hypertension type: essential hypertension Qualified Code: I10 - Essential ( primary) hypertension 5. Medical non-compliance Status: Chronic 6. History of CT (myocardial infarction) Status: Chronic 7. Chronic right hip pain Status: Chronic Patient condition Stable Plan: [facility] today. Further recommendations to follow. This inpt stay is expected to cross 2 MNs from start of care Yes at 0748
--- NOTE | 2016-07-21 07:48 | ACUTE CARE PROGRESS NOTE (QUA) ---
Progress Notes Subjective Date 07/21/16 Time 0743 Note 61 yo WM in NAD. No chest pain overnight. Ready for cath today. Objective Findings Last VS-Temp:98.7 B/P:90/42 Pulse:68 Resp:16 SaO2:95 ROOM AIR Last weight lbs:275 oz:1 K.768 Method:Bed Scales Exam General appearance: alert, awake, no acute distress Cardiovascular: regular rate & rhythm Respiratory: clear to auscultation Reviewed: medications, vital signs, lab results Assessment/Plan Problem List 1. Chest pain Status: Acute 2. Elevated d-dimer Status: Acute Assessment/Plan: CT of chest showed no evidence of PE. 3. CAD (coronary artery disease) Status: Chronic Assessment/Plan: [facility] today. Qualifiers: Coronary Disease-Associated Artery/Lesion type: unspecified vessel or lesion type [place] vs. transplanted heart: [place] heart Associated angina: with unstable angina Qualified Code: I25.110 - Atherosclerotic heart disease of [place] coronary artery with unstable angina pectoris 4. Hypertension Status: Chronic Assessment/Plan: Controlled on restarting of meds. Qualifiers: Hypertension type: essential hypertension Qualified Code: I10 - Essential ( primary) hypertension 5. Medical non-compliance Status: Chronic 6. History of [place] (myocardial infarction) Status: Chronic 7. Chronic right hip pain Status: Chronic Patient condition Stable Plan: [facility] today. Further recommendations to follow. This inpt stay is expected to cross 2 MNs from start of care Yes at 0748
--- NOTE | 2016-07-21 08:14 | ACUTE CARE PROGRESS NOTE (QUA) ---
Progress Notes Subjective Date 07/21/16 Time 0813 Note Patient has not had chest pain since he got to the floor. He states he feels well. He is scheduled for heart cath today. He slept well. Objective Findings Last VS-Temp:98.7 B/P:90/42 Pulse:68 Resp:16 SaO2:95 ROOM AIR Last weight lbs:275 oz:1 K.768 Method:Bed Scales Laboratory Tests 07/20/167: Creatine Kinase 127, CK-MB (CK-2) Rel Index 0.9, CK and CKMB Interp 1.2, Troponin I < 0.02, APTT 25.9 07/20/16 1500: Creatine Kinase 123, CK-MB (CK-2) Rel Index 1.1, CK and CKMB Interp 1.4, Troponin I < 0.02 07/20/16 1230: B-Natriuretic Peptide 17, D-Dimer 2700 *H 07/20/16 1230: Sodium 137, Potassium 3.9, Chloride 102, Carbon Dioxide 28, BUN 7, Creatinine 0.8, Estimated Creat Clear 163, Estimated GFR (MDRD) 98, Glucose 100, Calcium 8.9, Total Bilirubin 0.5, AST 28, ALT 48, Alkaline Phosphatase 96, Creatine Kinase 136, CK-MB (CK-2) Rel Index 1.3, CK and CKMB Interp 1.7, Troponin I < 0.02, Total Protein 8.2, Albumin 4.0, Globulin 4.2 H, Albumin/Globulin Ratio 1.0 L, PT 10.5, INR 0.98, APTT 27.3, WBC 7.0, RBC 5.39, Hgb 16.6, Hct 47.7, MCV 88.5, RDW 13.5, Plt Count 281, Gran % 62.4, Gran # 4.4, Lymphocytes % 32.1, Monocytes % 5.5, Lymphocytes # 2.2, Monocytes # 0.4, PUBS MCHC 34.8, MCH 30.8 Exam General appearance: alert, awake, no acute distress Cardiovascular: regular rate & rhythm Respiratory: clear to auscultation ABD: non-distended, normal bowel sounds, no rebound, soft, no tenderness, no guarding Extremities: no peripheral edema Assessment/Plan Problem List 1. Chest pain Status: Acute 2. Elevated d-dimer Status: Acute 3. CAD (coronary artery disease) Status: Chronic 4. Hypertension Status: Chronic 5. Medical non-compliance Status: Chronic 6. History of [place] (myocardial infarction) Status: Chronic 7. Chronic right hip pain Status: Chronic Plan: Cardiac enzymes have been normal. Awaiting cath later today. This inpt stay is expected to cross 2 MNs from start of care Yes (Kalyani Ayala) Assessment/Plan Problem List 1. Chest pain Status: Acute 2. Elevated d-dimer Status: Acute 3. CAD (coronary artery disease) Status: Chronic 4. Hypertension Status: Chronic 5. Medical non-compliance Status: Chronic 6. History of [place] (myocardial infarction) Status: Chronic 7. Chronic right hip pain Status: Chronic Comments: Patient seen and agree with above note. (Carlos Manuel Rosario MD) at 0814 at 0846
--- NOTE | 2016-07-21 13:46 | RADIOLOGY REPORT PS360 ---
CARDIAC CATHETERIZATION DATE OF CATHETERIZATION:07/21/2016 11:21 AM PROCEDURES: 1. Left heart catheterization 2. Left ventriculogram 3. Selective coronary angiogram 4. Selective engagement left internal mammary artery to the LAD 5. Selective engagement of the saphenous vein graft to the right coronary artery 6. Selective engagement saphenous vein graft to the circumflex artery 7. Drug-eluting stent deployment to the ostium of the saphenous vein graft supplying the dominant right coronary 8. Drug-eluting stent deployment to the distal saphenous vein graft supplying the circumflex artery INDICATION FOR TEST: 1. Unstable angina 2. Coronary artery disease 3. History of coronary artery bypass grafting 4. Severe to critical disease in the saphenous vein grafts Informed consent was obtained prior to the procedure. COMPLICATIONS: None ESTIMATED BLOOD LOSS: Less than 10 ml. TECHNIQUE: One percent lidocaine was used to anesthetize the right groin. The right femoral artery was accessed via the Seldinger technique. A 4-Kinyarwanda sheath was placed in the right femoral artery. Over a 3 J-wire a JL 4 JR4 VILLELA catheter were used to perform left heart catheterization left ventriculogram selective coronary angiogram as well as selective engagement of the left internal mammary artery and the 2 vein grafts. At the end the diagnostic angiogram 11,000 units of heparin was administered intravenously. Patient artery taken as Effient 10 mg prior to the procedure. The JR4 catheter was used intubate the saphenous vein graft to the right coronary artery. There is a fingerlike calcified eccentric plaque in the ostial proximal segment of the saphenous vein graft creating at least a 90% stenosis. This is easily identified in sequence 7 frame 25 which demonstrates is calcified highly eccentric critical stenosis. I chose not to use a filter wire because of the calcified eccentric stenosis which was very unlikely to produce no reflow phenomena. Furthermore I wanted to gently cross this lesion and a filter wire could potential he cause problems with this plaque. After the BMW wire was used to traverse the stenosis a 3 mm x 12 mm resolute stent was deployed at 20 jasper in the ostium reducing the severe stenosis to 0%. TYRONE-3 flow remained down the vein graft and [place]. Following this an Amplatz 1 guide catheter was used to selectively intubate the saphenous vein graft to the circumflex artery and the same BMW wire was advanced distally. Primary stenting cannot be performed therefore 2 mm x 12 mm noncompliant balloon was taken to 20 jasper in order to predilate the lesion. This would not allow passage of the drug-eluting stent therefore 3 mm x 12 mm noncompliant balloon was deployed at 20 jasper to predilate. Following this a 3 mm x 15 mm resolute stent was deployed at 20 jasper reducing the severe sequential calcified eccentric stenosis to 0%. The JR4 catheter was then used to perform left heart catheterization left ventriculogram. The ACT at the beginning of the case was 272 while the closing ACT was 324 seconds. Patient transferred the postop holding area in stable condition for sheath removal ANGIOGRAPHIC RESULTS: 1. The left main artery is normal 2. The left anterior descending artery proximally has an 80% stenosis and gives rise to a high first diagonal artery which has proximal 60% stenosis. The diagonal artery is at least 2.5 mm in diameter. It then gives rise to a bifurcating septal staff appraiser which is normal. 3. The circumflex artery proximally occluded 4. The right coronary artery proximally occluded 5. The SANTANA ventriculogram reveals preserved 65% 6. The left ventricular end-diastolic pressure 20 mmHg 7. The left internal mammary artery supplying the LAD is widely patent graft 8. The saphenous vein graft supplying the dominant right coronary artery has a very proximal severe 90% calcified stenosis which is best appreciated in sequence 7 frame 25 which demonstrates the near complete occlusion of this fingerlike calcified plaque originating from the superior surface of the vein graft projecting inferiorly. Distally there is a 60% concentric stenosis in the vein graft 9. The saphenous vein graft to the circumflex artery has mild atheromatous plaque in the proximal segment followed by a stent which has moderate in-stent restenosis of 40%. Distal to the stent are 2 sequential complex calcified ball-like lesions causing at least 90% stenosis. Distally the saphenous vein graft is moderate IMPRESSION: 1. Critical disease in the 2 vein graft supplying the dominant right coronary artery and nondominant circumflex which artery 2. Successful stenting of the ostial proximal saphenous vein graft supplying the dominant right coronary artery. Critical disease reduced to 0% with 1 drug-eluting stent 3. Successful stenting of the mid to distal saphenous vein graft supplying the nondominant circumflex artery. Critical tandem lesions reduced to 0% with 1 drug-eluting stent 4. Preserved ejection fraction 5. Mildly elevated LVEDP 6. Patent VILLELA to the LAD PLAN: 1. Effient and aspirin 2. Statin therapy LDL goal less than 70 3. Risk factor modification 4. Manual sheath pull
[2016-07-21] MEDS ORDERED: EFFIENT10 M2 PO (15:51)
[2016-07-21] MEDS ORDERED: LISINOPRIL10 MG PO (15:51)
[2016-07-21] MEDS ORDERED: LOPRESSOR 25MG.25 MG PO (15:51)
--- NOTE | 2016-07-27 09:11 | DISCHARGE SUMMARY STANDARD ---
Discharge Summary ([facility]) Date of admission: 07/20/16 Date of discharge: 07/21/16 Problem List: 1. Chest pain 2. Elevated d-dimer 3. CAD (coronary artery disease) 4. Hypertension 5. Medical non-compliance 6. History of DC (myocardial infarction) 7. Chronic right hip pain History of present illness: Mr. Rivera is a 61-year-old white male with known coronary artery disease who presented with chest pain that began 2 hours prior to ER visit. Symptoms were left-sided discomfort without radiation but with shortness of breath and diaphoresis. Patient's symptoms did occur with activity and resolved with rest. Symptoms began at rest and resolved after nitroglycerin paste was placed in the emergency department. He stated about 2 weeks prior to admission he had midsternal CP and he took some old nitroglycerin with resolution of symptoms at that time as well. He related noncompliance with medication over the last 3 months. He has known previous bypass and coronary artery disease that has been stented as recently as February 2015. Cardiology was consulted for evaluation and recommendations. His electrocardiogram showed sinus rhythm with a first- degree AV block and no acute change. His initial troponin was normal. He was admitted for observation. Exam on admission: General appearance: alert, awake, no acute distress Eyes: EOM's w/normal ROM, PERRLA ENT: mucous membranes moist, nose normal, pharynx normal, tympanic membranes normal Neck: non-tender, no carotid bruit, full range of motion, supple Cardiovascular: regular rate & rhythm Respiratory: clear to auscultation ABD: non-distended, normal bowel sounds, no rebound, soft, no tenderness, no guarding Extremities: no peripheral edema Musculoskeletal: equal muscle strength, motor intact, sensation intact Skin: normal color Neuro: normal mood/affect, oriented, speech clear Hospital Course: He had an Echo that showed an EF of 55% with a mildly enlarged left atrium, mild concentric left ventricular hypertrophy, a thickened and calcified aortic valve without aortic stenosis or aortic insufficiency, and mild mitral and tricuspid regurgitation. He had a CXR that showed nothing acute and a chest CT that showed nothing acute. He had a heart cath showing critical disease in the 2 vein graft supplying the dominant right coronary artery and nondominant circumflex artery. There was successful stenting of the ostial proximal saphenous vein graft supplying the dominant right coronary artery and successful stenting of the mid to distal saphenous vein graft supplying the nondominant circumflex artery. Cardiology started him on Effient and aspirin. He was stable to be discharged home on 07/21/16 and will need to f/u with Dr. España. Discharge medications: Continue taking these medications: Omeprazole (Omeprazole 40MG) 40 MG CAPSULE.DR 40 MILLIGRAM ORAL DAILY Qty = 30 ASPIRIN (Aspirin) 81 MG TAB.CHEW 81 MILLIGRAM ORAL DAILY Nitroglycerin (Nitrostat) 0.4 MG TAB.SUBL 0.4 MILLIGRAM SUBLINGUAL EVERY FIVE MINUTES NEEDED as needed for CHEST PAIN Gabapentin (Gabapentin 600MG) 600 MG TABLET 600 MILLIGRAM ORAL EVERY 8 HOURS (07/22/20) Qty = 90 OXYCODONE HCL (Oxycodone Hcl) 15 MG TABLET 15 MILLIGRAM ORAL THREE TIMES A DAY Qty = 90 Start taking the following new medications: Lisinopril (Lisinopril) 10 MG TABLET 10 MILLIGRAM ORAL DAILY Qty = 30 Refills = 5 Prasugrel HCl (Effient) 10 MG TABLET 10 MILLIGRAM ORAL DAILY Qty = 30 Refills = 5 Metoprolol Tartrate (Lopressor) 25 MG TABLET 25 MILLIGRAM ORAL TWICE A DAY Qty = 60 Refills = 5 Disposition: F/U with: Devendra España MD Follow up: 1 DAY Activity: Cont Current activity Diet: Cardiac Diet Discharge to: HOME Agency needed? N at 0911
== END 2016-07-21 21:10 | disposition home or self-care (01) ==
LOC: ER 12:33 → 2ND 13:11 → ICU 15:23
PROVIDERS: Emergency Medicine; Internal Medicine
PROC: B2121ZZ Fluoroscopy of Single Coronary Artery Bypass Graft using Low Osmolar Contrast (ICD-10-PCS; 2016-07-21)
PROC: B2111ZZ Fluoroscopy of Multiple Coronary Arteries using Low Osmolar Contrast (ICD-10-PCS; 2016-07-21)
PROC: B2151ZZ Fluoroscopy of Left Heart using Low Osmolar Contrast (ICD-10-PCS; 2016-07-21)
PROC: 027135Z Dilation of Coronary Artery, Two Arteries with Two Drug-eluting Intraluminal Devices, Percutaneous Approach (ICD-10-PCS; 2016-07-21)
PROC: 4A023N7 Measurement of Cardiac Sampling and Pressure, Left Heart, Percutaneous Approach (ICD-10-PCS; principal; 2016-07-21 12:15)
DX: I25.110 Atherosclerotic heart disease of native coronary artery with unstable angina pectoris (principal); Z95.1 Presence of aortocoronary bypass graft; I25.810 Atherosclerosis of coronary artery bypass graft(s) without angina pectoris; I25.2 Old myocardial infarction; I10 Essential (primary) hypertension; Z95.5 Presence of coronary angioplasty implant and graft
CPT/HCPCS: C1725; C1760; C1769; C1876; C1894; G0378; J1644; J2720; Q9967

== ENCOUNTER → 2016-11-27 | Outpatient (CLI) | payer OTHER, MEDICARE ==
[~2016-11-27] MED LIST changes: +LISINOPRIL10 MG PO; +LOPRESSOR 25MG.25 MG PO; +OXYCODONE HCL15 MG PO
[2016-11-27 11:45] LABS: BILIRUBIN, INDIRECT 0.52 mg/dL (0-0.9)
== END ==
LOC: LAB 09:12
PROVIDERS: Internal Medicine
DX: E78.5 Hyperlipidemia, unspecified (principal)

== ENCOUNTER → 2016-12-08 | Outpatient (CLI) | payer OTHER, MEDICARE ==
[2016-12-08 16:43] LABS: AMPHETAMINES/METAMPHETAMINES NEGATIVE ng/mL (<1000)
[2016-12-17 08:38] LABS: Opiates Negative (Cutoff=100)
== END ==
LOC: LAB 14:43
PROVIDERS: Anesthesiology
DX: Z79.899 Other long term (current) drug therapy (principal)